=== PATIENT | male | born 1990 | race American Indian/Alaskan Native ===

== ENCOUNTER 2018-11-05 00:43 | Emergency (ER) | payer SELFPAY ==
[2018-11-05 00:54] VITALS: RESP 18
[2018-11-05] MEDS ORDERED: Tetanus/Diphtheria Toxoids 0.5 ml Syringe IM ONE ×2 (01:46→01:53)
--- NOTE | 2018-11-05 01:51 | C.PDOC ---
History Of Present Illness Patient presents to the ER after hitting a gate and sustaining a laceration to the right forearm. Denies other injury. Time Seen by Provider: 11/05/18 01:33 Chief Complaint (Nursing): Abnormal Skin Integrity History Per: Patient History/Exam Limitations: no limitations Onset/Duration Of Symptoms: Hrs Current Symptoms Are (Timing): Still Present Location Of Injury: Right: Forearm Quality Of Symptoms: Other (Laceration) Severity: Mild Pain Scale Rating Of: 2 Recent travel outside of the [place]: No Past Medical History Reviewed: Historical Data, Nursing Documentation, Vital Signs Vital Signs: Last Vital Signs Temp 98.4 F 11/05/18 00:50 Pulse 101 H 11/05/18 00:50 Resp 18 11/05/18 00:50 BP 114/73 11/05/18 00:50 Pulse Ox 95 11/05/18 00:50 Primary Care Provider: Non [facility] Provider, Family History: States: No Known Family Hx - Social History Hx Alcohol Use: Yes Hx Substance Use: No - Immunization History Hx Tetanus Toxoid Vaccination: No Hx Influenza Vaccination: No Hx Pneumococcal Vaccination: No Review Of Systems Skin: Positive for: Other (Laceration) Neurological: Negative for: Weakness, Numbness Physical Exam - Physical Exam Appears: Non-toxic Skin: Warm, Dry Extremity: Tenderness, Capillary Refill (<2 seconds), Other (4cm laceration to right forearm. No active bleeding seen. Full ROM of right forearm. Sensory intact.) Pulses: Left Radial: Normal, Right Radial: Normal Neurological/Psych: Oriented x3 ED Course And Treatment O2 Sat by Pulse Oximetry: 95 (Room air) Pulse Ox Interpretation: Normal Progress Note: Tetanus vaccination administered. Reevaluation Time: 02:09 Reassessment Condition: Improved Laceration - Laceration Repair Right forearm Wound Length (In cm): 4 Description Of Wound: Linear Wound Cleansed With: Sterile Saline Anesthesia: Lidocaine 1%, With Epi Wound Examination: Irrigated With Saline, No FB With Wound Exploration, No Tendon Injury With Wound Exploration Wound Closure: Suture (Four) Suture Technique And Material Used: Interrupted, Prolene (4-0) Disposition Counseled Patient/Family Regarding: Studies Performed, Diagnosis, Need For F ollowup - Disposition Referrals: [facility] [Outside] Disposition: HOME/ ROUTINE Disposition Time: 02:08 Condition: FAIR Additional Instructions: Please return in 7 days for suture removal Instructions: Laceration Repair With Stitches (DC) Forms: [email or web address] (Sudanese) - Clinical Impression Clinical Impression: Laceration of forearm, right - Scribe Statement The provider has reviewed the documentation as recorded by the Scribe Zia Zambrano All medical record entries made by the Scribe were at my direction and personally dictated by me. I have reviewed the chart and agree that the record accurately reflects my personal performance of the history, physical exam, medical decision making, and the department course for this patient. I have also personally directed, reviewed, and agree with the discharge instructions and disposition.
[2018-11-05] MEDS ORDERED: Bacitracin Ointment 30 GM TUBE TOP ONE (02:09)
[2018-11-05 02:16] VITALS: BP 114/70; PULSE 78; TEMP 98; O2SAT 98
== END 2018-11-05 02:15 | disposition home or self-care (01) ==
LOC: MERGE 00:43 → C.ER 00:43
DX: S51.811A Laceration without foreign body of right forearm, initial encounter (principal); W22.8XXA Striking against or struck by other objects, initial encounter